=== PATIENT | male | born 1940 | race Caucasian/White ===

== ENCOUNTER 2020-05-18 11:30 | Emergency (ER) | payer OTHER ==
[~2020-05-18] VITALS: Ht 172.7 cm; Wt 113.4 kg
[2020-05-18] MEDS ORDERED: CARVEDILOL ER40 MG PO (11:56)
[2020-05-18] MEDS ORDERED: ZESTRIL5 MG PO (11:56)
[2020-05-18] MEDS ORDERED: METFORMIN HCL1000 M2 PO (11:57)
[2020-05-18] MEDS ORDERED: LIPITOR40 M1 PO (11:57)
[2020-05-18] MEDS ORDERED: ASPIR 8181 MG PO (11:57)
[2020-05-18] MEDS ORDERED: AMLODIPINE-OLM1 EAC3 PO (11:57)
== END 2020-05-18 12:32 | disposition home or self-care (01) ==
LOC: ER 11:30
DX: B35.6 Tinea cruris (principal)

== ENCOUNTER 2022-09-14 08:00 | Emergency (ER) | payer OTHER ==
[~2022-09-14] VITALS: Ht 172.7 cm; Wt 113.4 kg
[~2022-09-14 08:00] MED LIST: AMLODIPINE-OLM1 EAC3 PO; ASPIR 8181 MG PO; CARVEDILOL ER40 MG PO; LIPITOR40 M1 PO; METFORMIN HCL1000 M2 PO; ZESTRIL5 MG PO
== END 2022-09-14 13:12 | disposition home or self-care (01) ==
LOC: ER 08:00
DX: S00.83XA Contusion of other part of head, initial encounter (principal); W18.30XA Fall on same level, unspecified, initial encounter; Y93.9 Activity, unspecified; Y92.9 Unspecified place or not applicable; E11.9 Type 2 diabetes mellitus without complications; Z79.84 Long term (current) use of oral hypoglycemic drugs; I10 Essential (primary) hypertension